=== PATIENT | male | born 1975 | race Hispanic/Latino ===

== ENCOUNTER 2017-06-23 17:58 | Emergency (ER) | payer BC ==
[2017-06-23 18:01] VITALS: TEMP 97.9
[2017-06-23] MEDS ORDERED: Sodium Chloride 0.9% 1,000 ML IV STA (18:09)
--- NOTE | 2017-06-23 18:15 | ED PDOC ---
Syncope/Near Syncope/Dizziness Time Seen by Provider: 06/23/17 18:03 Chief Complaint (Nursing): Dizziness/Lightheaded Chief Complaint (Provider): Dizziness History Per: Patient History/Exam Limitations: no limitations Onset/Duration Of Symptoms: Hrs ([id number].) Current Symptoms Are (Timing): Still Present Additional Complaint(s): Abrahan Bazzi presents to the ED for a chief complaint of dizziness onset 3 hours prior to arrival. Patient states feels as though the room is spinning around and reports he feels better when lying still but states dizziness is worse upon head movement. Associated symptoms includes nausea and vomiting but denies any headache, chest pain, or palpitations. Past Medical History Reviewed: Historical Data, Nursing Documentation, Vital Signs Vital Signs: Last Vital Signs Temp 97.9 F 06/23/17 18:00 Pulse 77 06/23/17 18:00 Resp 18 06/23/17 18:00 BP 150/87 06/23/17 18:00 Pulse Ox 99 06/23/17 18:00 - Medical History PMH: No Chronic Diseases - Surgical History Surgical History: No Surg Hx - Family History Family History: States: Unknown Family Hx - Allergies Allergies/Adverse Reactions: Allergies Allergy/AdvReac Type Severity Reaction Status Date / Time tetracycline Allergy RASH Verified 06/23/17 17:59 Review of Systems ROS Statement: Except As Marked, All Systems Reviewed And Found Negative Cardiovascular: Negative for: Chest Pain, Palpitations Gastrointestinal: Positive for: Nausea, Vomiting Neurological: Positive for: Dizziness ([id number]). Negative for: Headache Physical Exam - Reviewed Nursing Documentation Reviewed: Yes Vital Signs Reviewed: Yes - Physical Exam Appears: Positive for: Well, Non-toxic, No Acute Distress Head Exam: Positive for: ATRAUMATIC, NORMAL INSPECTION, NORMOCEPHALIC Cardiovascular/Chest: Positive for: Regular Rate, Rhythm Respiratory: Positive for: Normal Breath Sounds (Lungs clear bilaterally.) Gastrointestinal/Abdominal: Positive for: Normal Exam, Soft. Negative for: Tenderness Extremity: Positive for: Normal ROM (Full range of motion.) Neurologic/Psych: Positive for: Alert (Awake), Oriented (x3) - Laboratory Results Result Diagrams: 06/23/17 18:36 - ECG O2 Sat by Pulse Oximetry: 99 (RA) Pulse Ox Interpretation: Normal Medical Decision Making Medical Decision Making: Time:1803: Initial Impression: 42 year old male with dizziness. Initial Plan: Labs and IV ordered. * EKG * CMP * CBC W/ Differentials * Antivert 25mg PO * Sodium chloride IV 1000 ML * Zofran 4mg * Re-Evaluation Scribe Attestation: Documented by Carmen Park acting as a scribe for Christian Josue MD. Provider Scribe Attestation: All medical record entries made by the Scribe were at my direction and personally dictated by me. I have reviewed the chart and agree that the record accurately reflects my personal performance of the history, physical exam, medical decision making, and the department course for this patient. I have also personally directed, reviewed, and agree with the discharge instructions and disposition. Disposition - Clinical Impression Clinical Impression: Dizziness - Patient ED Disposition Is Patient to be Admitted: Transfer of Care - Disposition Disposition: Transfer of Care Disposition Time: 19:00 Condition: FAIR Forms: [employer] (Yakut) Patient Signed Over To: Abel Anthony
[2017-06-23 18:39] LABS: BASO % 0.4 % (0.0-2.0); EOS % 0.1 % (0.0-4.0); HEMOGLOBIN 13.8 g/dL (12.0-18.0); LYMPH # 0.7 K/uL (1.0-4.3); LYMPH % 6.9 % (20.0-40.0); MEAN CELL VOLUME 94.9 fl (80.0-94.0); MEAN CORPUSCULAR HEMOGLOBIN 32.8 pg (27.0-31.0); MEAN CORPUSCULAR HGB CONC 34.6 g/dL (33.0-37.0); MEAN PLATELET VOLUME 7.9 fl (7.2-11.7); MONO # 0.4 K/uL (0.0-0.8); MONO % 4.3 % (0.0-10.0); NEUT % 88.3 % (50.0-75.0); PLATELET COUNT 282 K/uL (130-400); RBC 4.21 Mil/uL (4.40-5.90); RED CELL DISTRIBUTION WIDTH 11.9 % (11.5-14.5); WHITE BLOOD COUNT 10.2 K/uL (4.8-10.8)
[2017-06-23 18:49] LABS: ALB/GLOB RATIO 1.6 (1.0-2.1); ALBUMIN 4.3 g/dL (3.5-5.0); ALT/SGPT 46 U/L (21-72); AST/SGOT 29 U/L (17-59); BLOOD UREA NITROGEN 15 mg/dl (9-20); CALCIUM 9.6 mg/dL (8.4-10.2); GFR AFRICAN-AMERICAN > 60; GFR NON-AFRICAN AMERICAN > 60
[2017-06-23 19:46] VITALS: BP 140/68; PULSE 64; RESP 23; O2SAT 98
--- NOTE | 2017-06-23 20:22 | ED PDOC ---
- Laboratory Results Result Diagrams: 06/23/17 18:36 06/23/17 18:36 - ECG O2 Sat by Pulse Oximetry: 98 Medical Decision Making Medical Decision Makin: Patient signed out to provider by Dr. Josue pending re-evaluation. 2030 Patient reports mild improvement in symptoms. Labs showed no clinically significant abnormalities. Patient will follow up with his primary care physician in [facility], Dr. Sun. Diagnosis- Vertigo Condition has improved. Scribe Attestation: Documented by Carmen Park acting as a scribe for Abel Anthony MD. Provider Scribe Attestation: All medical record entries made by the Scribe were at my direction and personally dictated by me. I have reviewed the chart and agree that the record accurately reflects my personal performance of the history, physical exam, medical decision making, and the department course for this patient. I have also personally directed, reviewed, and agree with the discharge instructions and disposition. Disposition - Clinical Impression Clinical Impression: Vertigo - POA Present On Arrival: None - Disposition Disposition: Routine/Home Disposition Time: 20:30 Condition: IMPROVED Prescriptions: Meclizine [Antivert] 25 mg PO Q6 PRN #20 tab PRN Reason: Dizziness Ondansetron ODT [Zofran ODT] 4 mg PO Q6H PRN #16 odt PRN Reason: Nausea/Vomiting Instructions: Vertigo (ED) Forms: [employer] (Ugandan)
[2017-06-23 20:24] LABS: LYMPHOCYTE 4 % (20-50); MONOCYTE 6 % (0-10); NEUTROPHIL 90 % (42-75); PLATELET ESTIMATE NORMAL (NORMAL); TOTAL CELLS COUNTED 100
[2017-06-23 20:25] LABS: ANISOCYTOSIS SLIGHT; OVALOCYTES SLIGHT; TEARDROP CELLS SLIGHT
[2017-06-23 20:26] LABS: LARGE PLATELETS PRESENT
--- NOTE | 2017-06-24 12:02 | CARD ---
APPROVED REPORT EKG Measurement Heart [id number] <Conclusion> Normal sinus rhythm with sinus arrhythmia Normal ECG
== END 2017-06-23 21:02 | disposition home or self-care (01) ==
LOC: H.ER 17:58
DX: R42 Dizziness and giddiness (principal)
CPT/HCPCS: 80053; 85025; 93005; 96374; 99284; J2405; J7040